=== PATIENT | female | born 1995 ===

== ENCOUNTER → 2020-02-08 | Outpatient (CLI) | payer BC | END | disposition home or self-care (01) | LOC: LAB SHORT 12:28 → LAB EV 12:28 | DX: B34.9 Viral infection, unspecified (principal) | CPT/HCPCS: 87081 ==

== ENCOUNTER → 2020-02-08 | Outpatient (CLI) | payer BC ==
[2020-02-10 17:17] LABS: CORONAVIRUS (COVID19) CSH-NRL Negative (Negative)
== END ==
LOC: LAB SHORT 15:15 → LAB EV 15:15
PROVIDERS: Chiropractor
DX: Z20.828 Contact with and (suspected) exposure to other viral communicable diseases (principal)
CPT/HCPCS: U0003